=== PATIENT | female | born 1945 | race Caucasian/White ===

== ENCOUNTER 2017-05-25 13:29 | Emergency (ER) | payer OTHER ==
--- NOTE | 2017-05-25 13:35 | PDOC ---
History of Present Illness - History of Present Illness Initial Comments: 05/25/17 14:13 The patient is a 71 year old female with a significant PMHx cervical CA (in remission), who presents to the ED bilateral lower back pain for 1 week, worse on the left than the right. She reports her pain is exacerbated in certain positions than others. She reports pain with movement and bending. She states she does lay on the couch for long period of time, however, states she has done it for years with no problem. She also reportedly had a fracture in her back, as per family member, however, the patient states the pain is worse today. She denies recent falls or trauma. She denies chest pain, shortness of breath, headache and dizziness. She denies fever, chills, nausea, vomit, diarrhea and constipation. She denies dysuria, frequency, urgency and hematuria. Allergies: NKDA PMD: Dr. Guero Stewart ("monitors diabetes") PMD: Dr. Andrea Whitehead <Aimee Lew - Last Filed: 05/25/17 14:10> - History of Present Illness Initial Comments: 05/25/17 14:07 The patient complains of low back pain, which radiates across the low back to the left and right sides, is positional, and seems to be aggravated by bending and movement. She appears fairly comfortable at rest. It appears to be musculoskeletal in origin. She is morbidly obese and most likely is susceptible to back strain for this reason. There is no sign of radiculopathy and no distal sensory or motor deficits. She is fully ambulatory. 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 ARTHROSCOPIC KNEE SURGERY) - Suicide/Smoking/Psychosocial Hx Smoking Status: No Smoking History: Never smoked Have you smoked in the past 12 months: No Number of Cigarettes Smoked Daily: 0 Hx Alcohol Use: No Drug/Substance Use Hx: No Substance Use Type: None <Isiah Vo - Last Filed: 05/26/17 07:46> - Past Medical History Allergies/Adverse Reactions: Allergies Allergy/AdvReac Type Severity Reaction Status Date / Time No Known Allergies Allergy Verified 05/25/17 13:31 Home Medications: Ambulatory Orders Atorvastatin Calcium 40 mg PO DAILY 11/27/12 Losartan/Hydrochlorothiazide [Losartan-Hctz 50-12.5 mg Tab] 1 each PO DAILY [place]-3 Acid Ethyl Esters [Lovaza -] 1,000 mg PO TID 11/27/12 Ranitidine [Zantac -] 150 mg PO BID 11/27/12 Aspirin [Aspirin EC] 81 mg PO DAILY 03/16/14 Ergocalciferol (Vitamin D2) [Vitamin D2] 50,000 unit PO WEEKLY 03/16/14 Meloxicam [Mobic -] 15 mg PO DAILY PRN 03/16/14 Sitagliptin Phos/Metformin HCl [Janumet 50-500 mg Tablet] 1 tab PO BID 03/16/14 Liraglutide [Victoza -] 0.6 mg SQ DAILY@0700 11/15/15 Cyclobenzaprine HCl [Flexeril] 10 mg PO TID #15 tablet 05/25/17 Tramadol HCl 50 mg PO QID PRN #15 tablet MDD 4 05/25/17 Review of Systems - Review of Systems Able to Perform ROS?: Yes Comments:: 05/25/17 14:13 CONSTITUTIONAL: Absent: fever, chills, diaphoresis, generalized weakness, malaise, loss of appetite HEENT: Absent: rhinorrhea, nasal congestion, throat pain, throat swelling, difficulty swallowing, mouth swelling, ear pain, eye pain, visual Changes CARDIOVASCULAR: Absent: chest pain, syncope, palpitations, irregular heart rate, lightheadedness , peripheral edema RESPIRATORY: Absent: cough, shortness of breath, dyspnea with exertion, orthopnea, wheezing, stridor, hemoptysis GASTROINTESTINAL: Absent: abdominal pain, abdominal distension, nausea, vomiting, diarrhea, constipation, melena, hematochezia GENITOURINARY: Absent: dysuria, frequency, urgency, hesitancy, hematuria, flank pain, genital pain MUSCULOSKELETAL: (+) bilateral lower back pain. Absent: arthralgia, joint swelling SKIN: Absent: rash, itching, pallor HEMATOLOGIC/IMMUNOLOGIC: Absent: easy bleeding, easy bruising, lymphadenopathy, frequent infections ENDOCRINE: Absent: unexplained weight gain, unexplained weight loss, heat intolerance, cold intolerance NEUROLOGIC: Absent: headache, focal weakness or paresthesia, dizziness, unsteady gait, seizure, mental status changes, bladder or bowel incontinence PSYCHIATRIC: Absent: anxiety, depression, suicidal or homicidal ideation, hallucinations <Aimee Lew - Last Filed: 05/25/17 14:10> *Physical Exam - Vital Signs Last Vital Signs Temp Pulse Resp BP Pulse Ox 97.7 F 61 18 134/81 96 05/25/17 13:30 05/25/17 13:30 05/25/17 13:30 05/25/17 13:30 05/25/17 13:30 - Physical Exam Comments: 05/25/17 14:15 GENERAL: (+)morbidly obese. Well developed, well nourished. Awake and alert. No acute distress. HEENT: Normocephalic, atraumatic. PERRLA, EOMI. No conjunctival pallor. Sclera are non- icteric. Moist mucous membranes. Oropharynx is clear. NECK: Supple. Full ROM. No JVD. Carotid pulses 2+ and symmetric, without bruits. No thyromegaly. No lymphadenopathy. CARDIOVASCULAR: Regular rate and rhythm. No murmurs, rubs, or gallops. Distal pulses are 2+ and symmetric. PULMONARY: No evidence of respiratory distress. Lungs clear to auscultation bilaterally. No wheezing, rales or rhonchi. ABDOMINAL: Soft. Non-tender. Non-distended. No rebound or guarding. No organomegaly. Normoactive bowel sounds. MUSCULOSKELETAL (+) straightening with normal lumbar lordosis. mild paravertebral muscle spasm. No weakness or sensory deficits. Normal range of motion at all joints. No bony deformities. No CVA tenderness. EXTREMITIES: No cyanosis. No clubbing. No edema. No calf tenderness. SKIN: Warm and dry. Normal capillary refill. No rashes. No jaundice. NEUROLOGICAL: Alert, awake, appropriate. Cranial nerves 2-12 intact. No motor deficits in the upper extremities and lower extremities. Normoreflexic in the upper and lower extremities. Normal speech. Gait is normal without ataxia. PSYCHIATRIC: Cooperative. Good eye contact. Appropriate mood and affect. <Aimee Lew - Last Filed: 05/25/17 14:10> ED Treatment Course - LABORATORY CBC & Chemistry Diagram: 05/25/17 14:40 05/25/17 14:40 <sIiah Vo - Last Filed: 05/26/17 07:46> Medical Decision Making - Medical Decision Making 05/26/17 07:45 Laboratories including CBC, chemistries, and urinalysis are without abnormalities. There is no pain or tenderness in the abdomen pelvis or flank. Patient appears in no distress and is ambulating adequately. Prescribed muscle relaxant and tramadol, rest and heat, avoid sitting, and follow-up with business office specialist if there is no improvement. Weight loss is recommended as well. Patient fully ambulatory and discharged with her daughter to follow-up as directed <Isiah Vo - Last Filed: 05/26/17 07:46> *DC/Admit/Observation/Transfer - Attestations Scribe Attestion: 05/25/17 14:17 Documentation prepared by Aimee Lew, acting as director of graduate medical education for Isiah Melvin MD <Aimee Lew - Last Filed: 05/25/17 14:10> - Discharge Dispostion Admit: No <Isiah Vo - Last Filed: 05/26/17 07:46> Diagnosis at time of Disposition: Lower back pain Qualifiers: Chronicity: acute Back pain laterality: bilateral Sciatica presence: without sciatica Qualified Code(s): M54.5 - Low back pain - Discharge Dispostion Disposition: HOME Condition at time of disposition: Stable - Prescriptions Prescriptions: Cyclobenzaprine HCl [Flexeril] 10 mg PO TID #15 tablet Tramadol HCl 50 mg PO QID PRN #15 tablet MDD 4 PRN Reason: Severe Pain - Referrals Referrals: Andrea Whitehead MD [Primary Care Provider] - Maco Cameron MD [Staff Physician] - 1 week - Patient Instructions Printed Discharge Instructions: DI for Low Back Pain
[2017-05-25 13:39] VITALS: BP 134/81; PULSE 61; TEMP 97.7; BMI 38.2
[2017-05-25 14:15] LABS: PH,URINE 6.5 (4.5-8); URINE APPEARANCE Clear; URINE BILIRUBIN Negative (NEGATIVE); URINE BLOOD Negative (NEGATIVE); URINE GLUCOSE (UA) Negative (NEGATIVE); URINE KETONE Negative (NEGATIVE); URINE NITRITE Negative (NEGATIVE); URINE PROTEIN Negative (NEGATIVE); URINE UROBILINOGEN 0.2 (0.2-1.0)
[2017-05-25 14:17] LABS: URINE LEUK ESTERASE 1+ (NEGATIVE)
[2017-05-25 14:18] LABS: URINE COLOR YELLOW; URINE RBC 0-3 /hpf (0-3)
[2017-05-25 14:19] LABS: URINE BACTERIA MODERATE /hpf (NEGATIVE)
[2017-05-25 14:54] LABS: BASOPHIL 0.2 % (0-2.0); EOSINOPHIL 1.9 % (0-4.5); MCH 26.2 pg (25.7-33.7); MCHC 32.6 g/dl (32.0-36.0); MEAN CELL VOLUME 80.2 fl (80-96); MEAN PLT VOLUME 8.9 fl (7.5-11.1); NEUTROPHILS 59.9 % (42.8-82.8); PLATELET COUNT 269 K/MM3 (134-434); RDW 14.8 % (11.6-15.6); WHITE BLOOD COUNT 6.4 K/mm3 (4.0-10.8)
[2017-05-25 15:07] LABS: ALBUMIN 3.9 g/dl (3.5-5.0); ALK PHOS 63 U/L (32-92); ANION GAP 9 (8-16); BILIRUBIN,TOTAL 0.8 mg/dl (0.2-1.0); CO2 29 mmol/L (22-28); CREATININE 0.6 mg/dl (0.6-1.3); GLUCOSE,RANDOM 77 mg/dl (74-106); SGOT/AST 29 U/L (10-42); SGPT/ALT 22 U/L (10-40); TOT PROT 7.6 g/dl (6.4-8.3)
[2017-05-25] MEDS ORDERED: KETOROLAC TROMETHAMINE 60 MG/2 ML VIAL IM ONE (15:52)
[2017-05-25] MEDS ORDERED: KETOROLAC TROMETHAMINE 30 MG/1 ML VIAL ONE (15:54)
== END 2017-05-25 16:10 | disposition home or self-care (01) ==
LOC: FER 13:29
DX: M54.5 Low back pain (principal); E11.9 Type 2 diabetes mellitus without complications; I10 Essential (primary) hypertension; E78.00 Pure hypercholesterolemia, unspecified; Z85.41 Personal history of malignant neoplasm of cervix uteri; I71.4 Abdominal aortic aneurysm, without rupture
CPT/HCPCS: 36415; 80053; 81003; 81015; 85025; 87086; 99283-25

== ENCOUNTER 2017-09-05 10:01 | Emergency (ER) | payer OTHER ==
[2017-09-05] MEDS ORDERED: SODIUM CHLORIDE 1,000 ML IV STA (10:09)
[2017-09-05] MEDS ORDERED: ONDANSETRON 4 MG/2 ML VIAL IVPUSH ONE (10:11)
[2017-09-05 10:13] VITALS: BP 96/55; PULSE 80; TEMP 98.3; BMI 39.1
--- NOTE | 2017-09-05 10:14 | PDOC ---
History of Present Illness - General Chief Complaint: Vomiting/Diarrhea Stated Complaint: NAUSEA, VOMITING, DIARRHEA Time Seen by Provider: 09/05/17 10:04 History Source: Patient, Family Exam Limitations: No Limitations - History of Present Illness Travel History: No Initial Comments: 09/05/17 10:11 72 y/o female with hx of diabetes and cervical cancer s/p radiation treatment presents with N/V/D. Patient merrill fever, chills, SOB, or back pain. Abdominal cramping. Has had loose stool before, but never this bad. Unable to drink anything without having to go to bathroom. No blood in stool. No fall or trauma. Started last night. 3rd time this has happened in last year. Timing/Duration: reports: constant Quality: reports: moderate Abdominal Pain Onset Location: reports: epigastric Pain Radiation: reports: no radiation Past History - Past Medical History Allergies/Adverse Reactions: Allergies Allergy/AdvReac Type Severity Reaction Status Date / Time No Known Allergies Allergy Verified 05/25/17 13:31 Home Medications: Ambulatory Orders Atorvastatin Calcium 40 mg PO DAILY 11/27/12 Losartan/Hydrochlorothiazide [Losartan-Hctz 50-12.5 mg Tab] 1 each PO DAILY [place]-3 Acid Ethyl Esters [Lovaza -] 1,000 mg PO TID 11/27/12 Ranitidine [Zantac -] 150 mg PO BID 11/27/12 Aspirin [Aspirin EC] 81 mg PO DAILY 03/16/14 Ergocalciferol (Vitamin D2) [Vitamin D2] 50,000 unit PO WEEKLY 03/16/14 Sitagliptin Phos/Metformin HCl [Janumet 50-500 mg Tablet] 1 tab PO BID 03/16/14 Liraglutide [Victoza -] 0.6 mg SQ DAILY@0700 11/15/15 Anemia: No Asthma: No 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 ARTHROSCOPIC KNEE SURGERY) - Suicide/Smoking/Psychosocial Hx Smoking Status: No Smoking History: Never smoked Have you smoked in the past 12 months: No Number of Cigarettes Smoked Daily: 0 Hx Alcohol Use: No Drug/Substance Use Hx: No Substance Use Type: None Review of Systems - Review of Systems Able to Perform ROS?: Yes Is the patient limited Dutch proficient: No Constitutional: No: Chills, Fever Respiratory: No: Cough, Shortness of Breath Cardiac (ROS): No: Chest Pain ABD/GI: Yes: Diarrhea, Nausea, Vomiting : No: Dysuria All Other Systems: Reviewed and Negative *Physical Exam - Physical Exam General Appearance: Yes: Nourished, Appropriately Dressed, Mild Distress HEENT: positive: EOMI, YAMILE, Normal ENT Inspection, Pharynx Normal Neck: positive: Trachea midline, Normal Thyroid, Supple. negative: Tender, Rigid, Carotid bruit Respiratory/Chest: positive: Lungs Clear, Normal Breath Sounds. negative: Chest Tender, Respiratory Distress Cardiovascular: positive: Regular Rhythm, Regular Rate, S1, S2. negative: Edema , JVD, Murmur Vascular Pulses: Femoral (R): 4+, Femoral (L): 4+, Carotid (R): 4+, Carotid (L) : 4+, Dorsalis-Pedis (R): 4+, Doralis-Pedis (L): 4+ Gastrointestinal/Abdominal: positive: Normal Bowel Sounds, Tender (mid epigastric tenderness, no RLQ or LLQ tenderness, no RUQ or LUQ tenderness +BS), Flat, Soft. negative: Organomegaly, Pulsatile Mass Lymphatic: negative: Adenopathy, Tenderness, Other Musculoskeletal: positive: Normal Inspection. negative: CVA Tenderness Extremity: positive: Normal Capillary Refill, Normal Inspection Integumentary: positive: Normal Color, Dry, Warm Neurologic: positive: financial services representative II-XII NML intact, Fully Oriented, Alert, Normal Mood/ Affect, Normal Response, Motor Strength 5/5 ED Treatment Course - LABORATORY CBC & Chemistry Diagram: 09/05/17 10:30 09/05/17 10:30 Progress Note - Progress Note Progress Note: Pt with N/V/D. Will obtain labs, IVF and CT abdomen/pelvis to r/o obstruction. Pt is doing well, no fever or chills Will discharge with follow up with GI Family is in agreement with plan *DC/Admit/Observation/Transfer Diagnosis at time of Disposition: Diarrhea Qualifiers: Diarrhea type: unspecified type Qualified Code(s): R19.7 - Diarrhea, unspecified - Discharge Dispostion Disposition: HOME Condition at time of disposition: Good Admit: No - Referrals Referrals: Andrea Whitehead MD [Primary Care Provider] - Mick Pardo MD [Staff Physician] - - Patient Instructions Printed Discharge Instructions: DI for Diarrhea and Traveler's Diarrhea -- Adult Additional Instructions: Fluids, rest, Tylenol Imodium as needed for diarrhea Follow up with [facility] If worsen return to ER - Post Discharge Activity
[2017-09-05] MEDS ORDERED: ONDANSETRON 4 MG/2 ML VIAL ONE (10:32)
[2017-09-05 11:03] LABS: EOS % 0.6 % (0-4.5)
[2017-09-05 11:05] LABS: ALBUMIN 3.9 g/dl (3.5-5.0); ALK PHOS 58 U/L (32-92); ANION GAP 10 (8-16); BASO % 0.2 % (0-2.0); BILIRUBIN,TOTAL 0.9 mg/dl (0.2-1.0); BLOOD UREA NITROGEN 16 mg/dl (7-18); CALCIUM 9.8 mg/dl (8.4-10.2); CHLORIDE 100 mmol/L (98-107); CO2 25 mmol/L (22-28); CREATININE 0.6 mg/dl (0.6-1.3); GLUCOSE,RANDOM 157 mg/dl (74-106); LIPASE 32 U/L (22-51); MEAN CELL VOLUME 81.7 fl (80-96); POTASSIUM 4.1 mmol/L (3.5-5.1); RBC 5.33 M/mm3 (3.60-5.2); SGOT/AST 31 U/L (10-42); SGPT/ALT 24 U/L (10-40); SODIUM 135 mmol/L (136-145); TOT PROT 7.9 g/dl (6.4-8.3)
[2017-09-05 11:17] LABS: HEMATOCRIT 43.5 % (32.4-45.2); HEMOGLOBIN 13.7 GM/dl (10.7-15.3); LYMPH % 13.1 % (8-40); MCH 25.6 pg (25.7-33.7); MCHC 31.4 g/dl (32.0-36.0); MEAN PLT VOLUME 9.1 fl (7.5-11.1); MONO % 5.1 % (3.8-10.2); PLATELET COUNT 281 K/MM3 (134-434); WHITE BLOOD COUNT 9.6 K/mm3 (4.0-10.8)
[2017-09-05 12:29] LABS: PLATELET ESTIMATE ADEQUATE
== END 2017-09-05 12:34 | disposition home or self-care (01) ==
LOC: FER 10:01
PROC: 3E033GC Introduction of Other Therapeutic Substance into Peripheral Vein, Percutaneous Approach (ICD-10-PCS; principal; 2017-09-05)
PROC: 3E0337Z Introduction of Electrolytic and Water Balance Substance into Peripheral Vein, Percutaneous Approach (ICD-10-PCS; 2017-09-05)
DX: R19.7 Diarrhea, unspecified (principal); Z85.41 Personal history of malignant neoplasm of cervix uteri; E11.9 Type 2 diabetes mellitus without complications; I10 Essential (primary) hypertension; E78.00 Pure hypercholesterolemia, unspecified
CPT/HCPCS: 36415; 74177-TC; 80053; 83690; 85025; 99282-25

== ENCOUNTER 2020-12-11 04:47 | Day surgery (SDC) | payer OTHER ==
[2020-12-10 13:07] VITALS: BMI 38.2
[2020-12-11 10:40] VITALS: TEMP 97.1
[2020-12-11 12:30] VITALS: BP 122/67; PULSE 64
== END 2020-12-11 11:34 | disposition home or self-care (01) ==
LOC: JASU-ENDO 04:47
PROVIDERS: ATTEND Internal Medicine Gastroenterology
PROC: 0DBL8ZX Excision of Transverse Colon, Via Natural or Artificial Opening Endoscopic, Diagnostic (ICD-10-PCS; 2020-12-11)
PROC: 0DBP8ZX Excision of Rectum, Via Natural or Artificial Opening Endoscopic, Diagnostic (ICD-10-PCS; 2020-12-11)
PROC: 0DBL8ZX Excision of Transverse Colon, Via Natural or Artificial Opening Endoscopic, Diagnostic (ICD-10-PCS; 2020-12-11)
PROC: 0DBK8ZX Excision of Ascending Colon, Via Natural or Artificial Opening Endoscopic, Diagnostic (ICD-10-PCS; principal; 2020-12-11 10:00)
DX: Z12.11 Encounter for screening for malignant neoplasm of colon (principal); K62.1 Rectal polyp; D12.2 Benign neoplasm of ascending colon; D12.3 Benign neoplasm of transverse colon; K57.30 Diverticulosis of large intestine without perforation or abscess without bleeding; Z86.010 Personal history of colon polyps; R10.32 Left lower quadrant pain; R19.4 Change in bowel habit

== ENCOUNTER 2022-01-17 23:10 | Inpatient (IN) | payer OTHER ==
[2022-01-18] MEDS ORDERED: ACETAMINOPHEN 1000 MG/100 ML BAG IVPB ONE ×2 (00:05→22:15)
[2022-01-18] MEDS ORDERED: FAMOTIDINE 20 MG/50 ML IVPB 20 MG/50 ML MG IVPB ONE ×2 (00:05→00:19)
[2022-01-18] MEDS ORDERED: ACETAMINOPHEN INJECTION 100 ML IVPB ONE ×2 (00:20→22:14)
[2022-01-18 01:08] LABS: BASO % 0.5 % (0-2.0); EOS % 1.4 % (0-4.5); HEMATOCRIT 37.6 % (32.4-45.2); HEMOGLOBIN 12.1 GM/dL (10.7-15.3); LYMPH % 21.7 % (8-40); MCH 25.6 pg (25.7-33.7); MCHC 32.3 g/dl (32.0-36.0); MEAN CELL VOLUME 79.5 fl (80-96); MEAN PLT VOLUME 8.1 fl (7.5-11.1); MONO % 7.9 % (3.8-10.2); NEUT % 68.5 % (42.8-82.8); PLATELET COUNT 288 10^3/uL (134-434); RBC 4.73 M/mm3 (3.60-5.2); RDW 15.8 % (11.6-15.6); WHITE BLOOD COUNT 7.5 K/mm3 (4.0-10.0)
[2022-01-18 01:15] LABS: INR 1.05 (0.83-1.09); PROTHROMBIN TIME (PATIENT) 12.1 SEC (9.7-13.0)
[2022-01-18 01:17] LABS: ACTIVATED PTT 30.2 SECONDS (25.2-36.5)
[2022-01-18 01:23] LABS: CALCIUM 9.7 mg/dL (8.5-10.1)
[2022-01-18 01:24] LABS: ALBUMIN 3.3 g/dl (3.4-5.0); BLOOD UREA NITROGEN 16.4 mg/dL (7-18)
[2022-01-18 01:26] LABS: CREATININE 0.6 mg/dL (0.55-1.3)
[2022-01-18 01:28] LABS: BILIRUBIN,TOTAL 1.3 mg/dL (0.2-1); TOT PROT 7.4 g/dl (6.4-8.2)
[2022-01-18 01:32] LABS: N-TERMINAL BNP 12.3 pg/ml (5-450)
[2022-01-18] MEDS ORDERED: SODIUM CHLORIDE 0.9% 500 ML INFUS.BAG IV ONE (02:45)
[2022-01-18] MEDS ORDERED: LACTATED RINGERS SOLUTION 1000 ML INFUS.BAG IV ONE (04:36)
[2022-01-18] MEDS: INSULIN SLIDING SCALE (NOVOLOG) 1 VIAL SQ SCH ×3 (05:51→19:40)
[2022-01-18] MEDS ORDERED: LACTATED RINGERS SOLUTION 1,000 ML/1,000 ML INFUS.BAG IV SCH (07:30)
[2022-01-18 07:57] LABS: BASO % 0.5 % (0-2.0); EOS % 2.6 % (0-4.5); HEMATOCRIT 37.1 % (32.4-45.2); HEMOGLOBIN 11.9 GM/dL (10.7-15.3); LYMPH % 28.5 % (8-40); MCH 25.6 pg (25.7-33.7); MEAN CELL VOLUME 80.1 fl (80-96); MEAN PLT VOLUME 7.9 fl (7.5-11.1); MONO % 8.3 % (3.8-10.2); NEUT % 60.1 % (42.8-82.8); PLATELET COUNT 277 10^3/uL (134-434); RBC 4.63 M/mm3 (3.60-5.2); RDW 15.6 % (11.6-15.6); WHITE BLOOD COUNT 5.1 K/mm3 (4.0-10.0)
[2022-01-18 08:15] LABS: BLOOD UREA NITROGEN 12.8 mg/dL (7-18); CALCIUM 9.3 mg/dL (8.5-10.1)
[2022-01-18 08:18] LABS: CREATININE 0.5 mg/dL (0.55-1.3)
[2022-01-18 08:20] LABS: BILIRUBIN,TOTAL 0.7 mg/dL (0.2-1); TOT PROT 6.7 g/dl (6.4-8.2)
[2022-01-18] MEDS ORDERED: [UNRECOGNIZED DRUG - OTHER] PO SCH ×2 (10:00)
[2022-01-18] MEDS ORDERED: PATIENT'S OWN MEDICATION (NON-FORMULARY) (Famotidine [Pepcid] 40 MG Tablet) PO SCH (10:00)
[2022-01-18] MEDS ORDERED: FAMOTIDINE 20 MG TABLET ONE (10:12)
[2022-01-18] MEDS: FAMOTIDINE 40 MG TABLET PO SCH (10:29)
[2022-01-18] MEDS ORDERED: ACETAMINOPHEN 1000 MG/100 ML BAG IVPB PRN (12:05)
[2022-01-18] MEDS ORDERED: DEXTROSE 5%-LACTATED RINGERS 1,000 ML IV SCH (12:30)
[2022-01-18] MEDS ORDERED: LIDOCAINE 5% TOPICAL PATCH ONE (22:14)
[2022-01-18] MEDS ORDERED: LIDOCAINE 5% TOPICAL PATCH TP ONE (22:16)
[2022-01-18] MEDS ORDERED: ONDANSETRON 4 MG/2 ML VIAL ONE (22:21)
[2022-01-18] MEDS ORDERED: ONDANSETRON 4 MG/2 ML VIAL IVPUSH ONE (22:27)
[2022-01-18] MEDS: DEXTROSE 5%-LACTATED RINGERS 1,000 ML IV SCH (22:38)
[2022-01-19] MEDS: INSULIN SLIDING SCALE (NOVOLOG) 1 VIAL SQ SCH ×4 (01:10→19:52)
[2022-01-19] MEDS: LIDOCAINE PATCH REMOVAL MC SCH ×2 (05:06→22:02)
[2022-01-19] MEDS: DEXTROSE 5%-LACTATED RINGERS 1,000 ML IV SCH ×3 (05:07→22:28)
[2022-01-19 05:25] VITALS: BMI 38.9
[2022-01-19] MEDS: FAMOTIDINE 40 MG TABLET PO SCH (09:47)
[2022-01-19 12:30] LABS: CALCIUM 9.7 mg/dL (8.5-10.1)
[2022-01-19 12:31] LABS: ALBUMIN 3.2 g/dl (3.4-5.0); BLOOD UREA NITROGEN 9.2 mg/dL (7-18); MAGNESIUM 2.1 mg/dL (1.8-2.4)
[2022-01-19 12:34] LABS: CREATININE 0.7 mg/dL (0.55-1.3); PHOSPHOROUS 3.7 mg/dL (2.5-4.9)
[2022-01-19 12:36] LABS: BILIRUBIN,TOTAL 0.7 mg/dL (0.2-1); TOT PROT 7.5 g/dl (6.4-8.2)
[2022-01-19] MEDS ORDERED: ACETAMINOPHEN 325 MG TABLET (FP) PO ONE (12:37)
[2022-01-19] MEDS ORDERED: LORazepam 1 MG TABLET PO ONE ×2 (14:10→19:45)
[2022-01-20] MEDS: INSULIN SLIDING SCALE (NOVOLOG) 1 VIAL SQ SCH ×4 (00:36→17:23)
[2022-01-20] MEDS: DEXTROSE 5%-LACTATED RINGERS 1,000 ML IV SCH (05:32)
[2022-01-20] MEDS ORDERED: BUPIVACAINE HCL/PF 0.25% (2.5MG/ML) 10 ML VIAL ONE (07:56)
[2022-01-20] MEDS: FAMOTIDINE 40 MG TABLET PO SCH (10:02)
[2022-01-20] MEDS ORDERED: DEXAMETHASONE SOD PHOSPHATE 4 MG/1 ML VIAL ONE (11:47)
[2022-01-20] MEDS ORDERED: LIDOCAINE HCL/PF 2% SDV 5ML VIAL ONE (11:47)
[2022-01-20] MEDS ORDERED: PROPOFOL 20 ML ONE ×2 (11:48→12:40)
[2022-01-20] MEDS ORDERED: GLYCOPYRROLATE 0.2 MG/1 ML VIAL ONE (11:48)
[2022-01-20] MEDS ORDERED: NEOSTIGMINE METHYLSULFATE 0.5 MG/ML - 10 ML MDV ONE (11:49)
[2022-01-20] MEDS ORDERED: ROCURONIUM BROMIDE 50 MG/5 ML SYRINGE ONE (11:49)
[2022-01-20] MEDS ORDERED: MIDAZOLAM HCL 2 MG/2 ML SINGLE DOSE VIAL ONE (11:49)
[2022-01-20] MEDS ORDERED: ACETAMINOPHEN INJECTION 100 ML IVPB ONE (11:57)
[2022-01-20] MEDS ORDERED: CEFOXITIN SODIUM 2 GM IVPB ONE (11:57)
[2022-01-20] MEDS ORDERED: cefOXitin SODIUM 2 GM VIAL (RESTRICTED TO ID) IVPB ONE ×2 (12:00→12:01)
[2022-01-20] MEDS ORDERED: HEPARIN NA (PORCINE) 5,000 UNITS/ML 1ML VIAL ONE (12:33)
[2022-01-20] MEDS ORDERED: BUPIVACAINE HCL/PF 0.25% (2.5MG/ML) 10 ML VIAL IJ ONE (12:48)
[2022-01-20] MEDS ORDERED: hydrALAZINE HCL 20 MG/ML VIAL ONE (12:58)
[2022-01-20] MEDS ORDERED: ONDANSETRON 4 MG/2 ML VIAL IVPUSH PRN ×2 (13:46→14:12)
[2022-01-20] MEDS ORDERED: oxyCODONE HCL 5 MG TABLET PO PRN (13:53)
[2022-01-20] MEDS ORDERED: LACTATED RINGERS SOLUTION 1,000 ML IV SCH (14:00)
[2022-01-20] MEDS: LACTATED RINGERS SOLUTION 1,000 ML IV SCH (14:14)
[2022-01-20] MEDS ORDERED: FENTANYL CITRATE/PF 50 MCG/ML VIAL ONE (14:33)
[2022-01-20] MEDS ORDERED: ACETAMINOPHEN 325 MG TABLET (FP) PO PRN (19:00)
[2022-01-20] MEDS ORDERED: LIDOCAINE PATCH REMOVAL MC ONE (22:00)
[2022-01-21] MEDS: INSULIN SLIDING SCALE (NOVOLOG) 1 VIAL SQ SCH ×3 (00:16→11:15)
[2022-01-21] MEDS: LACTATED RINGERS SOLUTION 1,000 ML IV SCH (03:49)
[2022-01-21] MEDS ORDERED: FAMOTIDINE 40 MG TABLET PO SCH (10:00)
[2022-01-21] MEDS ORDERED: ASPIRIN COATED 81 MG TABLET.EC PO SCH (10:15)
[2022-01-21 11:15] LABS: BASO % 0.4 % (0-2.0); EOS % 0.7 % (0-4.5); HEMATOCRIT 34.6 % (32.4-45.2); HEMOGLOBIN 11.1 GM/dL (10.7-15.3); LYMPH % 22.1 % (8-40); MCH 25.4 pg (25.7-33.7); MCHC 32.1 g/dl (32.0-36.0); MEAN CELL VOLUME 79.2 fl (80-96); MEAN PLT VOLUME 7.7 fl (7.5-11.1); MONO % 6.3 % (3.8-10.2); NEUT % 70.5 % (42.8-82.8); PLATELET COUNT 263 10^3/uL (134-434); RBC 4.36 M/mm3 (3.60-5.2); RDW 15.9 % (11.6-15.6); WHITE BLOOD COUNT 6.9 K/mm3 (4.0-10.0)
[2022-01-21 11:50] LABS: BLOOD UREA NITROGEN 11.9 mg/dL (7-18)
[2022-01-21 11:51] LABS: CALCIUM 9.2 mg/dL (8.5-10.1)
[2022-01-21 11:52] LABS: ALBUMIN 3.1 g/dl (3.4-5.0)
[2022-01-21 11:54] LABS: CREATININE 0.7 mg/dL (0.55-1.3)
[2022-01-21 11:57] LABS: BILIRUBIN,TOTAL 0.7 mg/dL (0.2-1); TOT PROT 6.7 g/dl (6.4-8.2)
[2022-01-21 13:57] VITALS: BP 130/55; PULSE 59; TEMP 98.7
[2022-01-21] MEDS ORDERED: ATORVASTATIN CA 40 MG TABLET (FP) PO SCH (22:00)
== END 2022-01-21 17:02 | disposition home or self-care (01) | DRG 418 ==
LOC: JER 23:10 → JERBED 01-18 03:24 → J5S 01-19 04:57
PROVIDERS: ADMIT Internal Medicine; ATTEND Family Medicine
PROC: 0FT44ZZ Resection of Gallbladder, Percutaneous Endoscopic Approach (ICD-10-PCS; principal; 2022-01-20 11:00)
DX: K85.10 Biliary acute pancreatitis without necrosis or infection (principal); K81.0 Acute cholecystitis; E11.9 Type 2 diabetes mellitus without complications; I10 Essential (primary) hypertension; E78.5 Hyperlipidemia, unspecified; G47.33 Obstructive sleep apnea (adult) (pediatric); I71.2 Thoracic aortic aneurysm, without rupture; K21.9 Gastro-esophageal reflux disease without esophagitis; Z79.84 Long term (current) use of oral hypoglycemic drugs; K57.90 Diverticulosis of intestine, part unspecified, without perforation or abscess without bleeding; E66.9 Obesity, unspecified; Z68.39 Body mass index [BMI] 39.0-39.9, adult
CPT/HCPCS: 36415; 71045-TC-FY; 74176-TC; 74181-TC; 76705-TC; 80053; 82962; 83690; 83735; 83880; 84100; 84478; 84484; 85025; 85610; 85730; 88304-TC; 93005; 93010; 94760; 99285-25; C9803-CS; J1644; U0003; U0005

== ENCOUNTER 2022-02-14 09:14 | Emergency (ER) | payer OTHER ==
[2022-02-14 09:21] VITALS: BP 130/71; PULSE 59; TEMP 97.7; BMI 37.4
[2022-02-14] MEDS ORDERED: KETOROLAC TROMETHAMINE 30 MG/1 ML VIAL IM ONE (11:01)
[2022-02-14] MEDS ORDERED: KETOROLAC TROMETHAMINE 30 MG/1 ML VIAL ONE ×2 (11:06→11:14)
== END 2022-02-14 12:23 | disposition home or self-care (01) ==
LOC: JERFT 09:14
PROC: 3E0233Z Introduction of Anti-inflammatory into Muscle, Percutaneous Approach (ICD-10-PCS; principal; 2022-02-14)
DX: M19.032 Primary osteoarthritis, left wrist (principal)
CPT/HCPCS: 73090-TC-LT-FY; 73110-TC-LT-FY; 73130-TC-LT-FY; 73200-TC-RT; 99285-25

== ENCOUNTER 2022-07-12 08:11 | Emergency (ER) | payer OTHER ==
[2022-07-12 08:17] VITALS: RESP 18; BMI 37.1
[2022-07-12] MEDS ORDERED: AMPICILLIN NA/SULBACTAM NA 3 GM in SODIUM CHLORIDE 100 ML IVPB ONE (08:48)
[2022-07-12] MEDS ORDERED: DEXAMETHASONE SOD PHOSPHATE 10 MG/1 ML VIAL IVPUSH ONE (08:49)
[2022-07-12] MEDS ORDERED: ALBUTEROL SO4 2.5/IPRATROPIUM 0.5 INH SOL 3 ML VIAL.NEB. NEB ONE ×2 (08:51→08:57)
[2022-07-12] MEDS ORDERED: DEXAMETHASONE SOD PHOSPHATE 10 MG/1 ML VIAL ONE (08:57)
[2022-07-12 09:04] LABS: VENOUS BASE EXCESS 3.9 mmol/L (-2-2); VENOUS O2 SATURATION 84.8 % (70-80); VENOUS PCO2 48.2 mmHg (38-52); VENOUS PH 7.406 (7.310-7.410)
[2022-07-12 09:23] LABS: BASO % 0.7 % (0-2.0); HEMATOCRIT 41.9 % (32.4-45.2); HEMOGLOBIN 13.4 GM/dL (10.7-15.3); LYMPH % 18.3 % (8-40); MCH 25.3 pg (25.7-33.7); MEAN CELL VOLUME 79.2 fl (80-96); MEAN PLT VOLUME 7.6 fl (7.5-11.1); MONO % 5.9 % (3.8-10.2); NEUT % 73.1 % (42.8-82.8); PLATELET COUNT 347 10^3/uL (134-434); RBC 5.29 M/mm3 (3.60-5.2); RDW 15.6 % (11.6-15.6); WHITE BLOOD COUNT 10.2 K/mm3 (4.0-10.0)
[2022-07-12 09:35] LABS: INR 1.03 (0.83-1.09); PROTHROMBIN TIME (PATIENT) 11.9 SEC (9.7-13.0)
[2022-07-12 09:37] LABS: ACTIVATED PTT 31.5 SECONDS (25.2-36.5)
[2022-07-12 09:41] LABS: CALCIUM 9.5 mg/dL (8.5-10.1)
[2022-07-12 09:42] LABS: ALBUMIN 3.2 g/dl (3.4-5.0); BLOOD UREA NITROGEN 11.4 mg/dL (7-18)
[2022-07-12 09:45] LABS: CREATININE 0.7 mg/dL (0.55-1.3)
[2022-07-12 09:46] LABS: BILIRUBIN,TOTAL 0.6 mg/dL (0.2-1); TOT PROT 7.7 g/dl (6.4-8.2)
[2022-07-12 12:57] VITALS: TEMP 98.7
[2022-07-12 14:23] VITALS: BP 116/72; PULSE 76
[2022-07-12 14:47] LABS: MAGNESIUM 2.1 mg/dL (1.8-2.4)
== END 2022-07-12 14:05 | disposition short-term general hospital (02) ==
LOC: JER 08:11
PROC: 3E0F7GC Introduction of Other Therapeutic Substance into Respiratory Tract, Via Natural or Artificial Opening (ICD-10-PCS; principal; 2022-07-12)
PROC: 3E03329 Introduction of Other Anti-infective into Peripheral Vein, Percutaneous Approach (ICD-10-PCS; 2022-07-12)
PROC: 3E033GC Introduction of Other Therapeutic Substance into Peripheral Vein, Percutaneous Approach (ICD-10-PCS; 2022-07-12)
DX: R06.02 Shortness of breath (principal); R22.1 Localized swelling, mass and lump, neck
CPT/HCPCS: 0241U-QW; 36415; 70491-TC; 71045-TC-FY; 80053; 82803; 83605; 83735; 84484; 85025; 85610; 85730; 86850; 86900; 86901; 87040; 93005; 93010; 99285-25; J1100; Q9967

== ENCOUNTER 2022-12-22 07:26 | Day surgery (SDC) | payer OTHER ==
[2022-12-22] MEDS ORDERED: TRANEXAMIC ACID 1000 MG/10 ML VIAL IVPUSH ONE (07:29)
[2022-12-22] MEDS ORDERED: CELECOXIB 200 MG CAPSULE ONE (07:30)
[2022-12-22] MEDS ORDERED: CEFAZOLIN 2 GM in DEXTROSE 5%-WATER - 50 ML IVPB ONE (07:45)
[2022-12-22] MEDS ORDERED: CELECOXIB 200 MG CAPSULE PO ONE (07:45)
[2022-12-22] MEDS ORDERED: MIDAZOLAM HCL 2 MG/2 ML SINGLE DOSE VIAL ONE ×2 (08:19→10:03)
[2022-12-22] MEDS ORDERED: BUPIVACAINE LIPOSOME/PF (EXPAREL) 266 MG/20 ML VIAL ONE (08:19)
[2022-12-22] MEDS ORDERED: BUPIVACAINE HCL/PF 0.5% (5MG/ML) 10 ML VIAL ONE (08:20)
[2022-12-22 08:23] VITALS: BMI 36.4
[2022-12-22] MEDS ORDERED: ceFAZolin SODIUM 1 GM VIAL ONE ×2 (09:10→10:00)
[2022-12-22] MEDS ORDERED: VANCOMYCIN 1,000 MG VIAL (RESTRICTED TO ID ONLY) ONE (09:10)
[2022-12-22] MEDS ORDERED: ONDANSETRON 4 MG/2 ML VIAL IVPUSH PRN (09:45)
[2022-12-22] MEDS ORDERED: LACTATED RINGERS SOLUTION 1,000 ML IV SCH (09:45)
[2022-12-22] MEDS ORDERED: FAMOTIDINE 40 MG TABLET PO SCH (10:00)
[2022-12-22] MEDS ORDERED: TRANEXAMIC ACID 1000 MG/10 ML VIAL ONE (10:00)
[2022-12-22] MEDS ORDERED: PATIENT'S OWN MEDICATION (NON-FORMULARY) (Candesartan/Hydrochlorothiazid [Candesartan-Hctz PO SCH (10:00)
[2022-12-22] MEDS ORDERED: PATIENT'S OWN MEDICATION (NON-FORMULARY) (Sitagliptin Phos/Metformin Hcl [Janumet 50-500 M PO SCH (10:00)
[2022-12-22] MEDS ORDERED: ONDANSETRON 4 MG/2 ML VIAL ONE (10:38)
[2022-12-22] MEDS ORDERED: DEXAMETHASONE SOD PHOSPHATE 4 MG/1 ML VIAL ONE (10:38)
[2022-12-22] MEDS ORDERED: oxyCODONE HCL 5 MG TABLET PO PRN ×2 (11:52)
[2022-12-22] MEDS: KETOROLAC TROMETHAMINE 30 MG/1 ML VIAL IVPUSH SCH ×3 (12:05→20:04)
[2022-12-22] MEDS: ACETAMINOPHEN 1000 MG/100 ML BAG IVPB ONE ×2 (12:08→19:25)
[2022-12-22] MEDS ORDERED: sitaGLIPtin PHOSPHATE 50 MG TABLET PO SCH (16:30)
[2022-12-22] MEDS ORDERED: metFORMIN HCL 500 MG TABLET (FP) PO SCH (16:30)
[2022-12-22] MEDS: VALSARTAN 160 MG TABLET PO SCH (19:24)
[2022-12-22] MEDS: SENNOSIDES/DOCUSATE COMBO (SENNA PLUS) TABLET (UD) PO SCH ×2 (19:24→21:54)
[2022-12-22] MEDS: HYDROCHLOROTHIAZIDE 25 MG TABLET (FP) PO SCH (19:24)
[2022-12-22] MEDS: ACETAMINOPHEN 500 MG TABLET (FP) PO SCH ×2 (19:25→20:05)
[2022-12-22] MEDS: MULTIVITAMINS (DAILY MVI) TABLET (FP) PO SCH (19:49)
[2022-12-22] MEDS: PANTOPRAZOLE 40 MG TABLET PO SCH (19:49)
[2022-12-22] MEDS: ATORVASTATIN CA 40 MG TABLET (FP) PO SCH (19:49)
[2022-12-22] MEDS: CEFAZOLIN 2 GM in DEXTROSE 5%-WATER - 50 ML IVPB SCH (20:04)
[2022-12-22] MEDS: oxyCODONE HCL 10 MG SUSTAINED ACTING TABLET PO SCH (21:52)
[2022-12-23 00:25] VITALS: RESP 18
[2022-12-23] MEDS: CEFAZOLIN 2 GM in DEXTROSE 5%-WATER - 50 ML IVPB SCH (01:56)
[2022-12-23] MEDS: ACETAMINOPHEN 500 MG TABLET (FP) PO SCH ×3 (01:56→12:23)
[2022-12-23] MEDS ORDERED: ASPIRIN 325 MG TABLET PO SCH (08:00)
[2022-12-23 08:26] LABS: HEMATOCRIT 36.3 % (32.4-45.2); HEMOGLOBIN 11.4 G/dL (10.7-15.3); MCH 25.6 pg (25.7-33.7); MCHC 31.3 g/dl (32.0-36.0); MEAN CELL VOLUME 81.6 fl (80-96); MEAN PLT VOLUME 8.5 fl (7.5-11.1); PLATELET COUNT 261.9 10^3/uL (134-434); RBC 4.45 10^6/uL (3.60-5.2); RDW 17.1 % (11.6-15.6); WHITE BLOOD COUNT 8.7 10^3/uL (4.0-10.8)
[2022-12-23 09:32] VITALS: TEMP 97.7
[2022-12-23] MEDS: MULTIVITAMINS (DAILY MVI) TABLET (FP) PO SCH (09:32)
[2022-12-23] MEDS: ATORVASTATIN CA 40 MG TABLET (FP) PO SCH (09:32)
[2022-12-23] MEDS: oxyCODONE HCL 10 MG SUSTAINED ACTING TABLET PO SCH (09:32)
[2022-12-23] MEDS: PANTOPRAZOLE 40 MG TABLET PO SCH (09:32)
[2022-12-23] MEDS: HYDROCHLOROTHIAZIDE 25 MG TABLET (FP) PO SCH (09:35)
[2022-12-23] MEDS: VALSARTAN 160 MG TABLET PO SCH (09:35)
[2022-12-23] MEDS: SENNOSIDES/DOCUSATE COMBO (SENNA PLUS) TABLET (UD) PO SCH (09:35)
[2022-12-23] MEDS ORDERED: FAMOTIDINE 20 MG TABLET PO SCH (10:00)
[2022-12-23 14:29] VITALS: BP 97/50; PULSE 59
== END 2022-12-23 15:20 | disposition home health service (06) ==
LOC: FASUSAT 07:26 → FM/S 13:12 → FASUSAT 12-23 15:20
PROVIDERS: ATTEND Orthopaedic Surgery
PROC: 0SRC0J9 Replacement of Right Knee Joint with Synthetic Substitute, Cemented, Open Approach (ICD-10-PCS; principal; 2022-12-22 10:10)
DX: M17.11 Unilateral primary osteoarthritis, right knee (principal)
CPT/HCPCS: 20985; 27447; C1776; S2900; 36415; 73560-TC-RT-FY; 82962; 85027; 94660; 94760; 97010-GP; 97116-GP; 97162-GP; C1713; C1889

== ENCOUNTER 2023-06-20 13:54 | Emergency (ER) | payer OTHER ==
[2023-06-20 14:06] VITALS: RESP 17; BMI 35.5
[2023-06-20 14:09] VITALS: BP 126/69; PULSE 70; TEMP 98.1
[2023-06-20 17:51] LABS: HEMATOCRIT 36.5 % (32.4-45.2); HEMOGLOBIN 11.7 G/dL (10.7-15.3); MCH 25.5 pg (25.7-33.7); MEAN CELL VOLUME 79.9 fl (80-96); MEAN PLT VOLUME 8.3 fl (7.5-11.1); PLATELET COUNT 273.8 10^3/uL (134-434); RBC 4.57 10^6/uL (3.60-5.2); RDW 17.9 % (11.6-15.6); WHITE BLOOD COUNT 12.6 10^3/uL (4.0-10.8)
[2023-06-20 17:52] LABS: INR 1.08 (0.83-1.09); PROTHROMBIN TIME (PATIENT) 12.5 SEC (9.7-13.0)
[2023-06-20 17:55] LABS: ACTIVATED PTT 29.9 SECONDS (25.2-36.5)
[2023-06-20 19:08] LABS: POTASSIUM 3.8 mmol/L (3.5-5.1)
[2023-06-20 19:10] LABS: CALCIUM 9.3 mg/dL (8.5-10.1)
[2023-06-20 19:11] LABS: ALBUMIN 3.5 g/dl (3.4-5.0); BLOOD UREA NITROGEN 13.9 mg/dL (7-18)
[2023-06-20 19:14] LABS: CREATININE 0.6 mg/dL (0.55-1.3)
[2023-06-20 19:16] LABS: BILIRUBIN,TOTAL 0.8 mg/dL (0.2-1); TOT PROT 7.9 g/dl (6.4-8.2)
[2023-06-20 19:25] LABS: ANISOCYTOSIS 1+
[2023-06-20 19:26] LABS: PLATELET ESTIMATE ADEQUATE
== END 2023-06-20 19:40 | disposition home or self-care (01) ==
LOC: FER 13:54
DX: M25.511 Pain in right shoulder (principal); S42.91XA Fracture of right shoulder girdle, part unspecified, initial encounter for closed fracture; W01.0XXA Fall on same level from slipping, tripping and stumbling without subsequent striking against object, initial encounter
CPT/HCPCS: 36415; 72125-TC; 73030-TC-RT-FY; 73060-TC-RT-FY; 73200-TC-RT; 80053; 85027; 85610; 85730; 86850; 86900; 86901; 99285-25

== ENCOUNTER 2023-07-13 12:09 | Emergency (ER) | payer OTHER ==
[2023-07-13 12:37] VITALS: BP 132/70; PULSE 65; RESP 16; TEMP 98.7; BMI 37.4
[2023-07-13 13:23] LABS: HEMATOCRIT 36.5 % (32.4-45.2); HEMOGLOBIN 11.5 G/dL (10.7-15.3); MCHC 31.5 g/dl (32.0-36.0); MEAN CELL VOLUME 79.4 fl (80-96); MEAN PLT VOLUME 8.4 fl (7.5-11.1); PLATELET COUNT 251.2 10^3/uL (134-434); RDW 18.6 % (11.6-15.6); WHITE BLOOD COUNT 6.9 10^3/uL (4.0-10.8)
[2023-07-13 13:24] LABS: PLATELET ESTIMATE ADEQUATE
[2023-07-13 13:29] LABS: ALBUMIN 3.8 g/dl (3.4-5.0); BILIRUBIN,TOTAL 0.8 mg/dl (0.2-1); CALCIUM 9.5 mg/dl (8.5-10.1); CREATININE 0.7 mg/dl (0.6-1.3); POTASSIUM 4.1 mmol/L (3.5-5.1)
[2023-07-13] MEDS ORDERED: CLINDAMYCIN HCL 150 MG CAPSULE (FP) PO ONE (13:42)
[2023-07-13] MEDS ORDERED: CLINDAMYCIN HCL 150 MG CAPSULE (FP) ONE (13:54)
== END 2023-07-13 14:04 | disposition home or self-care (01) ==
LOC: FER 12:09
DX: L03.115 Cellulitis of right lower limb (principal); L03.116 Cellulitis of left lower limb; M79.89 Other specified soft tissue disorders; L53.9 Erythematous condition, unspecified; R50.9 Fever, unspecified
CPT/HCPCS: 36415; 80053; 85027; 93970-TC; 99284-25

== ENCOUNTER 2023-11-30 12:52 | Inpatient (IN) | payer OTHER ==
[2023-11-30 14:27] LABS: EPITHELIAL CELLS 0-5 /hpf
[2023-11-30 14:28] LABS: HEMATOCRIT 37.6 % (32.4-45.2); HEMOGLOBIN 11.8 G/dL (10.7-15.3); MCH 24.8 pg (25.7-33.7); MCHC 31.4 g/dl (32.0-36.0); MEAN PLT VOLUME 8.6 fl (7.5-11.1); PLATELET COUNT 215.5 10^3/uL (134-434); RBC 4.76 10^6/uL (3.60-5.2); WHITE BLOOD COUNT 13.3 10^3/uL (4.0-10.8)
[2023-11-30 14:30] LABS: ALBUMIN 3.7 g/dl (3.4-5.0); BILIRUBIN,TOTAL 1.5 mg/dl (0.2-1); CALCIUM 9.2 mg/dl (8.5-10.1); CREATININE 0.6 mg/dl (0.6-1.3); INR 1.14 (0.83-1.09); PROTHROMBIN TIME (PATIENT) 13.2 SEC (9.7-13.0)
[2023-11-30 14:32] LABS: ACTIVATED PTT 29.4 SECONDS (25.2-36.5)
[2023-11-30] MEDS ORDERED: VANCOMYCIN 1,000 MG VIAL (RESTRICTED TO ID ONLY) ONE (15:36)
[2023-11-30] MEDS ORDERED: ACETAMINOPHEN INJECTION 100 ML IVPB ONE (15:36)
[2023-11-30] MEDS ORDERED: PIPERACILLIN/TAZOBACTAM 4.5 GM VIAL IVPB ONE (15:36)
[2023-11-30] MEDS: VANCOMYCIN 1,000 MG in DEXTROSE 5%-WATER - 250 ML IVPB ONE (16:00)
[2023-11-30] MEDS: ACETAMINOPHEN 1000 MG/100 ML BAG IVPB ONE (16:03)
[2023-11-30 16:05] LABS: ANISOCYTOSIS 1+; OVALOCYTE 1+; PLATELET ESTIMATE ADEQUATE; TARGET CELLS OCCASIONAL
[2023-11-30] MEDS: PIPERACILLIN/TAZOB 4.5 GM 4.5 GM/100 ML BAG IVPB ONE (16:32)
[2023-11-30 18:20] VITALS: BMI 35.2
[2023-12-01] MEDS: PIPERACILLIN/TAZOB 4.5 GM 4.5 GM in DEXTROSE 5%-WATER 100 ML IVPB SCH ×2 (04:37→20:55)
[2023-12-01 08:04] LABS: ALBUMIN 3.5 g/dl (3.4-5.0); BILIRUBIN,TOTAL 1.3 mg/dl (0.2-1); CALCIUM 9.1 mg/dl (8.5-10.1); CREATININE 0.6 mg/dl (0.6-1.3); MAGNESIUM 1.7 mg/dL (1.8-2.4); PHOSPHOROUS 3.4 (2.5-4.9); POTASSIUM 3.6 mmol/L (3.5-5.1); TOT PROT 6.7 g/dl (6.4-8.2)
[2023-12-01] MEDS: ATORVASTATIN CA 40 MG TABLET (FP) PO SCH (09:13)
[2023-12-01] MEDS: ENOXAPARIN NA (PORCINE) 40 MG/0.4 ML DISP.SYRIN SQ SCH (09:14)
[2023-12-01] MEDS: ASPIRIN COATED 81 MG TABLET.EC PO SCH (09:14)
[2023-12-01] MEDS ORDERED: FUROSEMIDE 20 MG TABLET (FP) PO SCH (10:00)
[2023-12-01] MEDS: MAGNESIUM 1GM/D5W 100ML - 100 ML IVPB IVPB ONE (10:14)
[2023-12-01 10:24] LABS: BASO % 0.3 % (0-2.0); EOS % 1.9 % (0-4.5); HEMATOCRIT 33.7 % (32.4-45.2); HEMOGLOBIN 10.9 GM/dL (10.7-15.3); MCH 24.8 pg (25.7-33.7); MCHC 32.2 g/dl (32.0-36.0); MONO % 7.2 % (3.8-10.2); NEUT % 73.6 % (42.8-82.8); PLATELET COUNT 228 10^3/uL (134-434); RBC 4.38 M/mm3 (3.60-5.2); RDW 17.3 % (11.6-15.6); WHITE BLOOD COUNT 10.1 K/mm3 (4.0-10.0)
[2023-12-01] MEDS: VANCOMYCIN/WATER 1250 MG 1,250 MG/250 ML BAG IVPB SCH (20:45)
[2023-12-01] MEDS: CEFTRIAXONE 2 GM in DEXTROSE 5%-WATER 100 ML IVPB SCH (23:06)
[2023-12-02 09:05] LABS: ALBUMIN 3.5 g/dl (3.4-5.0); BILIRUBIN,TOTAL 0.5 mg/dl (0.2-1); CALCIUM 9.2 mg/dl (8.5-10.1); CREATININE 0.5 mg/dl (0.6-1.3); POTASSIUM 3.9 mmol/L (3.5-5.1); TOT PROT 6.7 g/dl (6.4-8.2)
[2023-12-02 09:59] LABS: BASO % 0.4 % (0-2.0); EOS % 3.2 % (0-4.5); HEMOGLOBIN 10.6 GM/dL (10.7-15.3); LYMPH % 24.5 % (8-40); MCH 24.7 pg (25.7-33.7); MEAN CELL VOLUME 77.3 fl (80-96); MONO % 8.6 % (3.8-10.2); NEUT % 63.3 % (42.8-82.8); PLATELET COUNT 241 10^3/uL (134-434); RBC 4.26 M/mm3 (3.60-5.2); RDW 17.2 % (11.6-15.6); WHITE BLOOD COUNT 8.4 K/mm3 (4.0-10.0)
[2023-12-02 10:19] LABS: N-TERMINAL BNP 64.2 pg/ml (5-450)
[2023-12-02 18:24] VITALS: BP 137/56; PULSE 68; RESP 17; TEMP 99
== END 2023-12-02 23:45 | disposition short-term general hospital (02) | DRG 920 ==
LOC: FER 12:52 → FM/S 15:46
PROVIDERS: ADMIT Internal Medicine; ATTEND Internal Medicine
DX: T86.821 Skin graft (allograft) (autograft) failure (principal); C49.9 Malignant neoplasm of connective and soft tissue, unspecified; L03.115 Cellulitis of right lower limb; E11.9 Type 2 diabetes mellitus without complications; K21.9 Gastro-esophageal reflux disease without esophagitis; I10 Essential (primary) hypertension; E78.5 Hyperlipidemia, unspecified; G47.33 Obstructive sleep apnea (adult) (pediatric); Y83.9 Surgical procedure, unspecified as the cause of abnormal reaction of the patient, or of later complication, without mention of misadventure at the time of the procedure; E66.9 Obesity, unspecified; Z68.35 Body mass index [BMI] 35.0-35.9, adult
CPT/HCPCS: 36415; 71045-TC-FY; 73701-TC-RT; 80053; 81003; 81015; 83036; 83605; 83735; 83880; 84100; 84484; 85025; 85027; 85610; 85730; 87040; 87081; 87086; 87635; 93306-TC; 93970-TC; 99285-25; J0131; Q9967